=== PATIENT | female | born 1940 | race Asian ===

== ENCOUNTER 2020-11-18 14:21 | Emergency (ER) | payer OTHER ==
[2020-11-18 14:47] VITALS: BMI 32.7
[2020-11-18] MEDS ORDERED: SODIUM CHLORIDE 1,000 ML IV STA (16:17)
[2020-11-18 19:22] LABS: BASO % 0.7 % (0-2.0); EOS % 0.9 % (0-4.5); HEMOGLOBIN 14.5 GM/dL (10.7-15.3); LYMPH % 28.2 % (8-40); MCH 29.4 pg (25.7-33.7); MCHC 33.8 g/dl (32.0-36.0); MEAN PLT VOLUME 7.6 fl (7.5-11.1); MONO % 4.8 % (3.8-10.2); NEUT % 65.4 % (42.8-82.8); PLATELET COUNT 322 10^3/uL (134-434); RBC 4.94 M/mm3 (3.60-5.2); RDW 14.1 % (11.6-15.6); WHITE BLOOD COUNT 8.3 K/mm3 (4.0-10.0)
[2020-11-18 19:31] LABS: INR 0.92 (0.83-1.09); PROTHROMBIN TIME (PATIENT) 11.3 SEC (9.7-13.0)
[2020-11-18 19:33] LABS: ACTIVATED PTT 35.4 SECONDS (25.2-36.5)
[2020-11-18 19:42] LABS: ALBUMIN 4.3 g/dl (3.4-5.0); BLOOD UREA NITROGEN 16.3 mg/dL (7-18); CALCIUM 9.7 mg/dL (8.5-10.1)
[2020-11-18 19:46] LABS: BILIRUBIN,TOTAL 0.6 mg/dL (0.2-1); CREATININE 0.7 mg/dL (0.55-1.3); TOT PROT 8.2 g/dl (6.4-8.2)
[2020-11-18 21:10] VITALS: BP 118/64; PULSE 75; TEMP 98.4
== END 2020-11-18 21:40 | disposition home or self-care (01) ==
LOC: JER 14:21
PROC: 3E0337Z Introduction of Electrolytic and Water Balance Substance into Peripheral Vein, Percutaneous Approach (ICD-10-PCS; principal; 2020-11-18)
DX: L30.9 Dermatitis, unspecified (principal)
CPT/HCPCS: 36415; 80053; 85025; 85610; 85651; 85730; 86140; 87040; 93971-TC; 99284-25

== ENCOUNTER 2023-09-01 11:37 | Observation (INO) | payer OTHER ==
[2023-09-01] MEDS ORDERED: VANCOMYCIN 1,000 MG in DEXTROSE 5%-WATER - 250 ML IVPB ONE (13:48)
[2023-09-01 14:54] LABS: BASO % 0.6 % (0-2.0); EOS % 0.3 % (0-4.5); HEMATOCRIT 33.6 % (32.4-45.2); HEMOGLOBIN 11.2 GM/dL (10.7-15.3); LYMPH % 22.7 % (8-40); MCH 29.1 pg (25.7-33.7); MCHC 33.4 g/dl (32.0-36.0); MEAN PLT VOLUME 7.2 fl (7.5-11.1); MONO % 6.7 % (3.8-10.2); NEUT % 69.7 % (42.8-82.8); PLATELET COUNT 360 10^3/uL (134-434); RBC 3.86 M/mm3 (3.60-5.2); RDW 13.6 % (11.6-15.6)
[2023-09-01 15:16] LABS: POTASSIUM 4.4 mmol/L (3.5-5.1)
[2023-09-01 15:18] LABS: ALBUMIN 3.8 g/dl (3.4-5.0)
[2023-09-01 15:20] LABS: URIC ACID 8.7 mg/dL (2.6-7.2)
[2023-09-01 15:23] LABS: BILIRUBIN,TOTAL 0.6 mg/dL (0.2-1); TOT PROT 8.1 g/dl (6.4-8.2)
[2023-09-01 15:26] LABS: N-TERMINAL BNP 130.1 pg/ml (5-450)
[2023-09-01] MEDS ORDERED: PIPERACILLIN/TAZOB 4.5 GM 4.5 GM/100 ML BAG IVPB ONE (17:22)
[2023-09-01] MEDS ORDERED: VANCOMYCIN 1 GRAM (PRE-DOCKED) 1,000 MG/250 ML BAG IVPB ONE (17:23)
[2023-09-01] MEDS: SODIUM CHLORIDE 0.9% 500 ML INFUS.BAG IV ONE (17:30)
[2023-09-01] MEDS: PIPERACILLIN/TAZOB 4.5 GM 4.5 GM in DEXTROSE 5%-WATER 100 ML IVPB ONE (17:30)
[2023-09-01 21:16] VITALS: BMI 31.9
[2023-09-02] MEDS ORDERED: ACETAMINOPHEN 325 MG TABLET (FP) PO PRN (09:59)
[2023-09-02] MEDS ORDERED: PIPERACILLIN/TAZOB 3.375 GM 3.375 GM in DEXTROSE 5%-WATER - 50 ML IVPB SCH (10:00)
[2023-09-02] MEDS: ENOXAPARIN NA (PORCINE) 40 MG/0.4 ML DISP.SYRIN SQ SCH (10:44)
[2023-09-02] MEDS: COLCHICINE 0.6 MG TAB PO SCH (10:44)
[2023-09-02] MEDS: PIPERACILLIN/TAZOB 3.375 GM 3.375 GM in DEXTROSE 5%-WATER - 50 ML IVPB SCH (11:54)
[2023-09-02] MEDS: VANCOMYCIN/WATER FOR INJ (PEG) 1,000 MG/200 ML BAG IVPB SCH (17:05)
[2023-09-02] MEDS: CEFTRIAXONE 1 GM in DEXTROSE 5%-WATER - 50 ML IVPB SCH (21:48)
[2023-09-03 08:38] LABS: BASO % 0.5 % (0-2.0); EOS % 0.5 % (0-4.5); HEMATOCRIT 32.9 % (32.4-45.2); HEMOGLOBIN 10.8 GM/dL (10.7-15.3); LYMPH % 26.4 % (8-40); MCH 28.6 pg (25.7-33.7); MEAN CELL VOLUME 86.7 fl (80-96); MEAN PLT VOLUME 7.2 fl (7.5-11.1); MONO % 8.8 % (3.8-10.2); NEUT % 63.8 % (42.8-82.8); PLATELET COUNT 359 10^3/uL (134-434); RBC 3.79 M/mm3 (3.60-5.2); RDW 13.6 % (11.6-15.6); WHITE BLOOD COUNT 9.6 K/mm3 (4.0-10.0)
[2023-09-03 08:55] LABS: POTASSIUM 4.4 mmol/L (3.5-5.1)
[2023-09-03 09:05] LABS: ALBUMIN 3.2 g/dl (3.4-5.0); BLOOD UREA NITROGEN 22.8 mg/dL (7-18); CALCIUM 9.8 mg/dL (8.5-10.1)
[2023-09-03 09:06] LABS: CREATININE 0.9 mg/dL (0.55-1.3)
[2023-09-03 09:10] LABS: BILIRUBIN,TOTAL 0.8 mg/dL (0.2-1); TOT PROT 7.3 g/dl (6.4-8.2)
[2023-09-03] MEDS ORDERED: metFORMIN HCL 500 MG TABLET (FP) PO SCH (22:00)
[2023-09-04 09:06] LABS: BASO % 0.6 % (0-2.0); EOS % 0.6 % (0-4.5); HEMATOCRIT 31.4 % (32.4-45.2); HEMOGLOBIN 10.5 GM/dL (10.7-15.3); LYMPH % 20.2 % (8-40); MCHC 33.5 g/dl (32.0-36.0); MEAN CELL VOLUME 86.3 fl (80-96); MONO % 9.4 % (3.8-10.2); NEUT % 69.2 % (42.8-82.8); PLATELET COUNT 394 10^3/uL (134-434); RBC 3.64 M/mm3 (3.60-5.2); RDW 13.5 % (11.6-15.6); WHITE BLOOD COUNT 8.7 K/mm3 (4.0-10.0)
[2023-09-04 09:16] LABS: POTASSIUM 4.4 mmol/L (3.5-5.1)
[2023-09-04 09:18] LABS: ALBUMIN 3.1 g/dl (3.4-5.0); BLOOD UREA NITROGEN 25.7 mg/dL (7-18); CALCIUM 9.7 mg/dL (8.5-10.1)
[2023-09-04] MEDS: HYDROCHLOROTHIAZIDE 25 MG TABLET (FP) PO SCH (09:20)
[2023-09-04] MEDS: SPIRONOLACTONE 25 MG TABLET PO SCH (09:20)
[2023-09-04] MEDS: ATORVASTATIN CA 20 MG TABLET (FP) PO SCH (09:20)
[2023-09-04] MEDS: LOSARTAN POTASSIUM 50 MG TABLET PO SCH (09:21)
[2023-09-04 09:23] LABS: BILIRUBIN,TOTAL 0.5 mg/dL (0.2-1); TOT PROT 7.1 g/dl (6.4-8.2)
[2023-09-04] MEDS ORDERED: PATIENT'S OWN MEDICATION (NON-FORMULARY) (Spironolact/Hydrochlorothiazid [Spironolactone-H PO SCH (10:00)
[2023-09-04] MEDS: predniSONE 20 MG TABLET (UD) PO SCH (15:03)
[2023-09-05 06:50] VITALS: TEMP 97.6
[2023-09-05] MEDS: AMOX TR/POT CLAV 875MG/125MG TABLETS (FP) PO SCH (09:45)
[2023-09-05 12:59] VITALS: BP 130/50; PULSE 80; RESP 16
== END 2023-09-05 14:00 | disposition home or self-care (01) ==
LOC: JER 11:37 → INTOOBSV 16:21 → JERBED 16:21 → UNDOADMOB 16:21 → J5S 18:07 → JERBED 18:07 → J5S 09-02 09:45
PROVIDERS: ADMIT Internal Medicine; ATTEND Internal Medicine
PROC: 3E03329 Introduction of Other Anti-infective into Peripheral Vein, Percutaneous Approach (ICD-10-PCS; principal; 2023-09-02)
PROC: 3E023GC Introduction of Other Therapeutic Substance into Muscle, Percutaneous Approach (ICD-10-PCS; 2023-09-02)
PROC: 3E0337Z Introduction of Electrolytic and Water Balance Substance into Peripheral Vein, Percutaneous Approach (ICD-10-PCS; 2023-09-02)
DX: M25.473 Effusion, unspecified ankle (principal); M10.9 Gout, unspecified; E78.5 Hyperlipidemia, unspecified; E11.9 Type 2 diabetes mellitus without complications; E03.9 Hypothyroidism, unspecified
CPT/HCPCS: 36415; 71045-TC-FY; 73610-TC-LT-FY; 73630-TC-LT; 80053; 82962; 83036; 83605; 83735; 83880; 84550; 85025; 85651; 86140; 87040; 93970-TC; 96361; 96365; 96366; 96367; 96372; 99285-25; G0378